=== PATIENT | male | born 2000 | race Caucasian/White ===

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

== ENCOUNTER 2022-03-18 12:24 | Inpatient (IN) | payer MEDICAID, OTHER, SELFPAY ==
[~2022-03-18] VITALS: Ht 177.8 cm; Wt 104.9 kg
[~2022-03-18 12:24] MED LIST changes: +ALBU2.5V10 INH; -ALBU83IN INH; -MONT10TA4 PO; +MONT10TA97 PO
[2022-03-18] MEDS ORDERED: HYDR-643 PO (12:38)
[2022-03-18 13:24] LABS: HEMATOCRIT 46.5 % (42.0-52.0); HEMOGLOBIN 15.8 g/dl (13.5-17.5); MEAN CORPUSCULAR HEMOGLOBIN 28.4 pg (27.0-33.0); MEAN CORPUSCULAR VOLUME 83.6 fl (80.0-96.0); PLATELET COUNT, AUTOMATED 328 10^3/uL (150-450); RED BLOOD COUNT 5.56 10^6/uL (4.30-6.10); WHITE BLOOD COUNT 13.4 10^3/uL (4.0-10.0)
[2022-03-18 13:54] LABS: ETHYL ALCOHOL (ETHANOL) 0.003 % (0.000-0.010)
[2022-03-18 13:56] LABS: ACETAMINOPHEN LEVEL < 2.0 UG/ML (10.0-20.0); ALBUMIN 4.8 G/DL (3.2-5.2); ALKALINE PHOSPHATASE 95 U/L (46-116); ALT/SGPT 20 U/L (7.0-40); AST/SGOT 15 U/L (<34); BILIRUBIN,DIRECT 0.3 MG/DL (<0.4); BLOOD UREA NITROGEN 6 MG/DL (9-23); CALCIUM LEVEL 9.9 MG/DL (8.5-10.1); CARBON DIOXIDE LEVEL 20 MMOL/L (20-31); CHLORIDE LEVEL 108 MMOL/L (98-107); CREATININE FOR GFR 0.76 MG/DL (0.70-1.30); GLUCOSE, FASTING 102 MG/DL (60-100); POTASSIUM SERUM 3.6 MMOL/L (3.5-5.1); SALICYLATE LEVEL < 3.0 MG/DL (<30); SODIUM LEVEL 143 MMOL/L (136-145); TOTAL PROTEIN 7.7 G/DL (5.7-8.2)
[2022-03-18 13:57] LABS: RSV AMPLIFICATION NEGATIVE (NEGATIVE)
[2022-03-18 13:58] LABS: THYROID STIMULATING HORMONE 2.439 uIU/ML (0.48-4.17)
[2022-03-18] MEDS ORDERED: ACETAMINOPHEN TAB 650MG DOSE (2X325MG) PO PRN (14:25)
[2022-03-18] MEDS ORDERED: MOM 30ML SUSPENSION UDC PO PRN (14:25)
[2022-03-18] MEDS ORDERED: MAALOX 30 ML SUSP *UDC PO PRN (14:25)
[2022-03-18] MEDS ORDERED: traZODone 50 MG TAB PO PRN (14:25)
[2022-03-18] MEDS ORDERED: hydrOXYzine 50 MG TAB PO PRN (14:25)
[2022-03-18 14:58] LABS: AMPHETAMINES LEVEL URINE NEGATIVE (NEGATIVE); BARBITURATES URINE NEGATIVE (NEGATIVE); BENZODIAZEPINES URINE NEGATIVE (NEGATIVE); CANNABINOIDS URINE NEGATIVE (NEGATIVE); COCAINE METABOLITE URINE NEGATIVE (NEGATIVE); METHADONE URINE NEGATIVE (NEGATIVE); OPIATES URINE NEGATIVE (NEGATIVE); PHENCYCLIDINE URINE NEGATIVE (NEGATIVE)
[2022-03-18] MEDS ORDERED: VENTAER INH (15:08)
[2022-03-18] MEDS ORDERED: HOME MED LIST COMPLETE! XX SCH (15:10)
[2022-03-19 06:29] VITALS: BP 135/84
[2022-03-19] MEDS: CETIRIZINE (ZyrTEC) 10 MG TAB PO SCH (09:52)
[2022-03-19] MEDS: busPIRone 5 MG TAB PO SCH ×2 (12:04→22:11)
[2022-03-19] MEDS ORDERED: SERTRALINE HCL 25 MG TABLET PO ONE (12:15)
[2022-03-19] MEDS ORDERED: ALBUTEROL 90 MCG/ACT 8GM HFA INHALER INH PRN (12:25)
[2022-03-19 16:28] VITALS: BP 136/79
[2022-03-20 06:36] VITALS: BP 139/64
[2022-03-20] MEDS: SERTRALINE HCL 50 MG TAB PO SCH (08:04)
[2022-03-20] MEDS: CETIRIZINE (ZyrTEC) 10 MG TAB PO SCH (08:04)
[2022-03-20] MEDS: busPIRone 5 MG TAB PO SCH ×2 (08:04→20:18)
[2022-03-20 16:16] VITALS: BP 137/83
[2022-03-21 06:25] VITALS: BP 148/84
[2022-03-21] MEDS: SERTRALINE HCL 50 MG TAB PO SCH (08:04)
[2022-03-21] MEDS: busPIRone 5 MG TAB PO SCH (08:04)
[2022-03-21] MEDS ORDERED: BUSP5TA PO (08:28)
[2022-03-21] MEDS ORDERED: SERT50TA29 PO (08:28)
== END 2022-03-21 14:27 | disposition home or self-care (01) | DRG 755 ==
LOC: M ED 12:24 → M ED INP 14:25 → M PSY 15:22
PROVIDERS: ADMIT Psychiatry & Neurology Psychiatry; ATTEND Psychiatry & Neurology Psychiatry
DX: F43.23 Adjustment disorder with mixed anxiety and depressed mood (principal); F31.9 Bipolar disorder, unspecified; F60.3 Borderline personality disorder; F41.9 Anxiety disorder, unspecified; Z63.0 Problems in relationship with spouse or partner; R45.851 Suicidal ideations; Z20.822 Contact with and (suspected) exposure to COVID-19; J45.909 Unspecified asthma, uncomplicated; F17.210 Nicotine dependence, cigarettes, uncomplicated; Z79.899 Other long term (current) drug therapy; Z91.52 Personal history of nonsuicidal self-harm